=== PATIENT | male | born 1950 | race Caucasian/White ===

== ENCOUNTER 2021-08-02 10:34 | Emergency (ER) | payer OTHER ==
[~2021-08-02] VITALS: Ht 188 cm; Wt 104.3 kg
[~2021-08-02 10:34] MED LIST: ALBIPROI INH; ALBU90OI INH; ATEN50 PO; BUDE6HFA INH; BUPR150T2 PO; CHOL10002 PO; CLON1 PO; CLON2 PO; DOCU100 PO; DULO30 PO; FURO20 PO; FURO40 PO; HYDACE10B PO; ISOMON30 PO; LACT10SY PO; LISI20 PO; METF500 PO; NAPR220 PO; NICO14TP TOP; NITR.4SL SL; NITR.6SL SL; OMEP20ER PO; OXYC5 PO; POTCHL10ER PO; POTCHL20ER PO; PROM25 PO; TIOT18 IH; TIOT18 INH; TRAZ150T57 PO; Vitamin B-650 MG PO
[2021-08-02] MEDS ORDERED: HYDR1TAB94 PO (13:18)
== END 2021-08-02 15:00 | disposition home or self-care (01) ==
LOC: ER 10:34
DX: I77.9 Disorder of arteries and arterioles, unspecified (principal); E11.9 Type 2 diabetes mellitus without complications; I10 Essential (primary) hypertension; G47.30 Sleep apnea, unspecified; F17.210 Nicotine dependence, cigarettes, uncomplicated; Z91.030 Bee allergy status
CPT/HCPCS: 36415; 73502; 93926; 99285-25

== ENCOUNTER 2022-01-11 10:59 | Inpatient (IN) | payer OTHER ==
[~2022-01-11] VITALS: Ht 182.9 cm; Wt 104.3 kg
[~2022-01-11 10:59] MED LIST changes: +HYDR1TAB94 PO
[2022-01-11] MEDS ORDERED: ASCO500 PO (11:11)
[2022-01-11] MEDS ORDERED: Vitamin D1000 UNI1 PO (11:12)
[2022-01-11 11:38] LABS: BASOPHILS ABSOLUTE AUTO 0.05 K/mm3 (0.00-0.23); BASOPHILS PERCENT AUTO 1 % (0-2); EOSINOPHILS PERCENT AUTO 2 % (0-6); Hematocrit 48.8 % (37.0-53.0); Hemoglobin 15.8 g/dL (13.5-17.5); IMMATURE GRAN ABSOLUTE AUTO 0.01 K/mm3 (0.00-0.10); IMMATURE GRAN PERCENT AUTO 0 % (0-1); LYMPHOCYTES ABSOLUTE AUTO 1.07 K/mm3 (0.84-5.20); LYMPHOCYTES PERCENT AUTO 20 % (21-46); MONOCYTES ABSOLUTE AUTO 0.43 K/mm3 (0.16-1.47); MONOCYTES PERCENT AUTO 8 % (4-13); Mean Corpuscular HGB 30.1 pg (26.0-34.0); Mean Corpuscular HGB Conc 32.4 g/dL (31.5-36.5); Mean Corpuscular Volume 93 fL (80-100); Mean Platelet Volume 10.9 fL (9.1-12.4); NEUTROPHILS PERCENT AUTO 68 % (41-73); Platelet Count 105 K/mm3 (150-400); RDW Coefficient Variation 15.9 % (11.7-14.2); Red Blood Cell Count 5.25 M/mm3 (4.30-5.90); White Blood Cell Count 5.26 K/mm3 (4.00-11.30)
[2022-01-11 11:48] LABS: Alanine Aminotransfer (ALT/SGP 22 U/L (12-78); Albumin, Blood 3.4 g/dL (3.4-5.0); Albumin/Globulin Ratio 0.9 (0.8-1.8); Alk Phos 74 U/L (50-136); Anion Gap 4 mmol/L (6-16); Aspartate Aminotrans (AST/SGOT 27 U/L (12-37); Bilirubin, Total 0.4 mg/dL (0.1-1.0); Blood Urea Nitrogen 14 mg/dL (8-24); Bun/Creatinine Ratio 18.3 (12.0-20.0); CO2, Blood 36 mmol/L (21-32); Calcium, Blood 8.5 mg/dL (8.5-10.1); Chloride, Blood 96 mmol/L (98-108); Creatinine, Blood 0.77 mg/dL (0.60-1.20); Globulin, Blood 3.9 g/dL (2.2-4.0); Glomerular Filtration Rate >60 (60-); Glucose, Blood 143 mg/dL (70-99); Potassium, Blood 4.1 mmol/L (3.5-5.5); Sodium, Blood 136 mmol/L (136-145); Total Protein, Blood 7.3 g/dL (6.4-8.2)
[2022-01-11 14:07] LABS: Base Excess Venous 13.7 mmol/L; Bicarbonate Venous 31.8 mmol/L (24.0-30.0); PCO2 Venous 81.7 mmHg (38-42); PO2 Venous 31.4 mmHg (38-42)
[2022-01-11 14:58] LABS: Influenza A, PCR NEGATIVE (NEGATIVE); Influenza B, PCR NEGATIVE (NEGATIVE); Resp Syncytial Virus, PCR NEGATIVE (NEGATIVE); SARS-Cov-2 (COVID-19) PCR, MMC NEGATIVE (NEGATIVE)
[2022-01-11 19:59] LABS: U Amphetamine Screen Not Detected; U Barbituate Screen Not Detected; U Benzodiazapine Screen Not Detected; U Buprenorphine Screen Not Detected; U Cannabinoids Screen Not Detected; U Cocaine Screen Not Detected; U Methadone Screen Not Detected; U Methamphetamine Screen Not Detected; U Opiates Screen Not Detected; U Oxycodone Screen Not Detected; U Phencyclidine Screen Not Detected; U Propoxyphene Screen Not Detected
--- NOTE | 2022-01-12 04:25 | NUR ---
SHIFT SUMMARY: A/OX4- PATIENT ABLE TO WALK WITH FRONT WHEEL WALKER STANDBY ASSIST. NO COMPLAINTS OF PAIN THROUGHOUT THE NIGHT. PATIENTS PLACED ON 4L O2 AT THE BEGINNING OF SHIFT, WEANED DOWN TO 3 L- PT DECLINED TO CONTINUE TO WEAR OXYGEN DURING SLEEP AND SELF REMOVED NASAL CANNULA. MOTORIZED WHEEL CHAIR IN ROOM AT BEDSIDE. PATIENT WALKED TO AND FROM BATHROOM WITH NO SIGNIFICANT RESPIRATORY DISTRESS PREVIOUSLY OBSERVED. BED ALARM ACTIVATED, BED IN LOW POSITION, CALL GONZALES AND BELONGINGS IN REACH.
[2022-01-12 04:59] LABS: Hematocrit 51.3 % (37.0-53.0); Hemoglobin 16.3 g/dL (13.5-17.5); Mean Corpuscular HGB 29.9 pg (26.0-34.0); Mean Corpuscular HGB Conc 31.8 g/dL (31.5-36.5); Mean Corpuscular Volume 94 fL (80-100); Mean Platelet Volume 10.7 fL (9.1-12.4); Platelet Count 102 K/mm3 (150-400); RDW Standard Deviation 55.7 fL (35.1-46.3); Red Blood Cell Count 5.46 M/mm3 (4.30-5.90); White Blood Cell Count 5.78 K/mm3 (4.00-11.30)
[2022-01-12 05:28] LABS: Albumin, Blood 3.7 g/dL (3.4-5.0); Anion Gap 7 mmol/L (6-16); Blood Urea Nitrogen 22 mg/dL (8-24); Bun/Creatinine Ratio 28.6 (12.0-20.0); CO2, Blood 33 mmol/L (21-32); Calcium, Blood 8.8 mg/dL (8.5-10.1); Chloride, Blood 96 mmol/L (98-108); Creatinine, Blood 0.77 mg/dL (0.60-1.20); Glomerular Filtration Rate >60 (60-); Glucose, Blood 242 mg/dL (70-99); Phosphorus, Blood 4.5 mg/dL (2.5-4.9); Potassium, Blood 4.3 mmol/L (3.5-5.5); Sodium, Blood 136 mmol/L (136-145); Thyroid Stimulating Hormone 0.442 uIU/mL (0.360-4.800)
--- NOTE | 2022-01-12 09:54 | NUR ---
PATIENT FOUND WITH NC OFF. O2 SAT READING 88% ON RA. REPLACED NC ON PATIENT O2 SAT READING 94% ON 1L. RE-EDUCATED PATIENT OF IMPORTANCE OF LEAVING NC ON.
--- NOTE | 2022-01-12 17:27 | NUR ---
SHIFT SUMMARY PATIENT A&OX4. STARTED SHIFT ON O2 3L NC, WEANED DOWN TO 1L. FOUND PATIENT WITH NC OFF MULTIPLE TIMES T/O SHIFT AND SATS HIGH 80S ON ROOM AIR. PATIENT ABLE TO STAND USING WALKER AND USE URINAL. PATIENT STATES HE USES WALKER TO GET AROUND HIS APARTMENT AND HIS ELECTRIC WHEEL CHAIR FOR FURTHER DISTANCES. LLE CELLULITIS, RED AND SWOLLEN TO BELOW THE KNEE. STATES LEFT FOOT NUMBNESS. DENIES PAIN, N/V. ELEVATED BP, MEDICATED PER NOV. WILL CONTINUE TO MONITOR.
--- NOTE | 2022-01-13 04:07 | NUR ---
SHIFT SUMMARY: A/OX4, STANDBY ASSIST WITH FRONT WHEEL WALKER. PATIENT ABLE TO STAND AT BEDSIDE AND USE URINAL INDEPENDENTLY WITH STEADY STRENGTH, CALLS STAFF FOR STANDBY ASSISTANCE WALKING. CONTINUES TO CALL APPROPRIATELY. CIWAS HAVE REMAINED NEGATIVE THROUGHOUT THE NIGHT. PATIENT NOT GETTING A LOT OF REST, OFTEN SEEN SITTING ON SIDE OF BED REPORTS THIS POSITION HELPS BREATHING. RESPIRATORY THERAPIST CONTACTED FOR BREATHING TREATMENTS. BED IN LOW POSITION, CALL GONZALES IN REACH.
--- NOTE | 2022-01-13 18:31 | NUR ---
SHIFT SUMMARY PATIENT A&O X4. SBA WITH WALKER IN ROOM. ON 1L NC. OCCASIONALLY NEEDS REMINDED TO KEEP NC ON. LLE RED AND SWOLLEN. REPORTS THAT IT IS LESS PAINFUL THAN USUAL. NO PAIN MEDS GIVEN. BLOOD PRESSURE ELEVATED, ALL OTHER VS STABLE. WILL CONTINUE TO MONITOR.
--- NOTE | 2022-01-14 04:45 | NUR ---
SHIFT SUMMARY PT A/O X 4, MED PER NOV X 1 FOR C/O PAIN TO LLE, PT REPORTED GOOD PAIN RELIEF AFTER. FLACO PO WELL, VOIDING WITHOUT DIFFICULTY, UP WITH SBA/WALKER. VSS, LUNGS WITH WHEEZES NOTED, DIMINISHED LUNG SOUNDS, FLACO 1L O2 VIA N/C, CONGESTED COUGH NOTED, NO DISTRESS. ANTICIPATE D/C WHEN MEDICALLY STABLE.
--- NOTE | 2022-01-14 17:49 | NUR ---
SHIFT SUMMARY SITTING ON SIDE OF BED MOST OF DAY LAYING DOWN OCC. LLE WITH SWELLING AND REDNESS NOTED. URINATING WELL. APPEARS SOB WHENEVER IN THE ROOM. DENIES IT WORSENING WITH ACTIVITY. DID AUDIBLE HEAR FAINT WHEEZING FROM DOOR THIS AFTERNOON AND NEB REQUESTED. DENIES PAIN. LIVES AT [facility]. STANDS AT SIDE OF BED INDEPENDENTLY TO USE URINAL.
--- NOTE | 2022-01-15 06:13 | NUR ---
SHIFT SUMMARY PT A/O X 4, LUNGS COARSE WITH CONGESTED COUGH NOTED, PT FLACO ROOM AIR, NO DISTRESS NOTED. PT UP INDEPENDENTLY IN ROOM, VOIDING WITHOUT DIFFICULTY. LLE SWOLLEN, LARA, VSS, ANTICIPATE D/C WHEN MEDICALLY STABLE.
[2022-01-15] MEDS ORDERED: GLIP2.5ER PO (11:44)
[2022-01-15] MEDS ORDERED: ASPI81CH PO (11:44)
[2022-01-15] MEDS ORDERED: IPRAT-ALBUT 0.5-3 ML INH (11:46)
[2022-01-15] MEDS ORDERED: Hair, Skin & N1 EACH PO (11:47)
[2022-01-15] MEDS ORDERED: Prinivil10 MG PO (11:47)
[2022-01-15] MEDS ORDERED: ALBU90OI INH (11:48)
[2022-01-15] MEDS ORDERED: FLUTICASONE-SA1 EAC2 INH (11:49)
[2022-01-15] MEDS ORDERED: OMEP20ER PO (11:50)
[2022-01-15] MEDS ORDERED: Prednisone10 MG PO (11:53)
[2022-01-15 12:46] LABS: Influenza A, PCR NEGATIVE (NEGATIVE); Influenza B, PCR NEGATIVE (NEGATIVE); Resp Syncytial Virus, PCR NEGATIVE (NEGATIVE); SARS-Cov-2 (COVID-19) PCR, MMC NEGATIVE (NEGATIVE)
== END 2022-01-15 15:20 | disposition home or self-care (01) | DRG 189 ==
LOC: ER 10:59 → MEDS 19:43
PROVIDERS: Emergency Medicine; Internal Medicine; ADMIT Internal Medicine
DX: J96.21 Acute and chronic respiratory failure with hypoxia (principal); J44.1 Chronic obstructive pulmonary disease with (acute) exacerbation; I50.32 Chronic diastolic (congestive) heart failure; Z20.822 Contact with and (suspected) exposure to COVID-19; R22.42 Localized swelling, mass and lump, left lower limb; I11.0 Hypertensive heart disease with heart failure; J96.22 Acute and chronic respiratory failure with hypercapnia; D69.6 Thrombocytopenia, unspecified; E11.51 Type 2 diabetes mellitus with diabetic peripheral angiopathy without gangrene; G47.30 Sleep apnea, unspecified; G47.00 Insomnia, unspecified; E55.9 Vitamin D deficiency, unspecified; F10.10 Alcohol abuse, uncomplicated; F19.10 Other psychoactive substance abuse, uncomplicated; M51.36 Other intervertebral disc degeneration, lumbar region; Z71.6 Tobacco abuse counseling; F17.210 Nicotine dependence, cigarettes, uncomplicated; Z91.038 Other insect allergy status; Z79.899 Other long term (current) drug therapy
CPT/HCPCS: 0241U; 36415; 71045; 72148; 74176; 80053; 80069; 82803; 82947; 83036; 83880; 84443; 84484; 85025; 85027; 93005; 93010; 93306; 93926; 93971; 94640; 94664; 94760; 96374; 99285-25; A9270; J1650; J1815; J2930; J7512

== ENCOUNTER 2023-02-27 16:07 | Inpatient (IN) | payer OTHER ==
[~2023-02-27] VITALS: Ht 182.9 cm; Wt 108.5 kg
[~2023-02-27 16:07] MED LIST changes: +ASCO500 PO; +ASPI81CH PO; +FLUTICASONE-SA1 EAC2 INH; +GLIP2.5ER PO; +Hair, Skin & N1 EACH PO; +IPRAT-ALBUT 0.5-3 ML INH; +Prednisone10 MG PO; +Prinivil10 MG PO; +Vitamin D1000 UNI1 PO
[2023-02-27 17:04] LABS: BASOPHILS ABSOLUTE AUTO 0.03 K/mm3 (0.00-0.23); BASOPHILS PERCENT AUTO 0 % (0-2); EOSINOPHILS ABSOLUTE AUTO 0.13 K/mm3 (0.00-0.68); EOSINOPHILS PERCENT AUTO 2 % (0-6); Hematocrit 45.7 % (37.0-53.0); Hemoglobin 15.3 g/dL (13.5-17.5); IMMATURE GRAN ABSOLUTE AUTO 0.02 K/mm3 (0.00-0.10); IMMATURE GRAN PERCENT AUTO 0 % (0-1); LYMPHOCYTES ABSOLUTE AUTO 0.98 K/mm3 (0.84-5.20); LYMPHOCYTES PERCENT AUTO 13 % (21-46); MONOCYTES ABSOLUTE AUTO 0.43 K/mm3 (0.16-1.47); MONOCYTES PERCENT AUTO 6 % (4-13); Mean Corpuscular HGB 30.1 pg (26.0-34.0); Mean Corpuscular HGB Conc 33.5 g/dL (31.5-36.5); Mean Corpuscular Volume 90 fL (80-100); Mean Platelet Volume 9.3 fL (9.1-12.4); NEUTROPHILS ABSOLUTE AUTO 5.99 K/mm3 (1.96-9.15); NEUTROPHILS PERCENT AUTO 79 % (41-73); Platelet Count 153 K/mm3 (150-400); RDW Coefficient Variation 18.3 % (11.7-14.2); RDW Standard Deviation 56.2 fL (35.1-46.3); Red Blood Cell Count 5.09 M/mm3 (4.30-5.90); White Blood Cell Count 7.58 K/mm3 (4.00-11.30)
[2023-02-27 17:15] LABS: Albumin, Blood 2.6 g/dL (3.4-5.0); Albumin/Globulin Ratio 0.6 (0.8-1.8); Bilirubin, Total 0.7 mg/dL (0.1-1.0); Bun/Creatinine Ratio 11.4 (12.0-20.0); Calcium, Blood 8.1 mg/dL (8.5-10.1); Creatinine, Blood 0.53 mg/dL (0.60-1.20); Globulin, Blood 4.4 g/dL (2.2-4.0); Potassium, Blood 4.6 mmol/L (3.5-5.5)
[2023-02-28 01:46] VITALS: BP 126/71
--- NOTE | 2023-02-28 03:04 | NUR ---
PATIENT IS A NEW ADMIT FROM THE ED. AXOX 4 AND WHEELCHAIR BOUND ARRIVED VIA GURNY AND FOUR PERSON TRANSFER TO BED. IV VANCO INFUSING FROM THE ED. ON 2L O2 NC STATING 89-90% AND ROOM AIR BASELINE. REPORTS HOMELESS. RT NOW REPORTS PATIENT STATING 98% ON 2L AT THIS TIME. TELEMETRY PLACED AND TECH REPORTS ST [address]. DR STALIN PHELAN PODIATRY ANSWERING SERVICE CALLED AND REPORTS TO HAVE DAY RN CALL DAY PHONE NUMBER PROVIDED. ED RN REPORTS DR PHELAN ALSO CONSULTED IN ED TO SEE PATIENT IN OFFICE TOMORROW. PATIENT DENIES CHEST PAIN, SOB, AND N/V. AFEBRILE. CONSENT TO PHOTOGRAPH SIGNED AND PICTURES TAKEN OF LEFT HEEL ULCER AND TOES. PHOTO'S IN CHART. ED RN REPORTS POSSIBLE BED BUGS AND CONTACT STICKY MAT PLACED AT DOORWAY WITH CONTACT PRECAUTIONS. PATIENT WHEELCHAIR PLACED IN ROOM. REPORTS WANT TO WATCH TV AFTER ASSESSMENT. ORIENTED TO ROOM AND CALL LIGHT SYSTEM. WCTM.
[2023-02-28 05:13] LABS: BASOPHILS ABSOLUTE AUTO 0.02 K/mm3 (0.00-0.23); BASOPHILS PERCENT AUTO 0 % (0-2); EOSINOPHILS ABSOLUTE AUTO 0.06 K/mm3 (0.00-0.68); EOSINOPHILS PERCENT AUTO 1 % (0-6); Hemoglobin 13.4 g/dL (13.5-17.5); IMMATURE GRAN ABSOLUTE AUTO 0.02 K/mm3 (0.00-0.10); IMMATURE GRAN PERCENT AUTO 0 % (0-1); LYMPHOCYTES ABSOLUTE AUTO 0.65 K/mm3 (0.84-5.20); LYMPHOCYTES PERCENT AUTO 11 % (21-46); MONOCYTES ABSOLUTE AUTO 0.35 K/mm3 (0.16-1.47); MONOCYTES PERCENT AUTO 6 % (4-13); Mean Corpuscular HGB 29.8 pg (26.0-34.0); Mean Corpuscular HGB Conc 32.7 g/dL (31.5-36.5); Mean Corpuscular Volume 91 fL (80-100); Mean Platelet Volume 9.4 fL (9.1-12.4); NEUTROPHILS ABSOLUTE AUTO 4.91 K/mm3 (1.96-9.15); NEUTROPHILS PERCENT AUTO 82 % (41-73); Platelet Count 118 K/mm3 (150-400); RDW Coefficient Variation 17.7 % (11.7-14.2); RDW Standard Deviation 57.1 fL (35.1-46.3); Red Blood Cell Count 4.49 M/mm3 (4.30-5.90); White Blood Cell Count 6.01 K/mm3 (4.00-11.30)
--- NOTE | 2023-02-28 05:30 | NUR ---
COVID-19 SWAB TAKEN AND SENT TO LAB.
[2023-02-28 05:37] LABS: Albumin, Blood 2.4 g/dL (3.4-5.0); Albumin/Globulin Ratio 0.7 (0.8-1.8); Bilirubin, Total 0.5 mg/dL (0.1-1.0); Bun/Creatinine Ratio 17.9 (12.0-20.0); Calcium, Blood 7.9 mg/dL (8.5-10.1); Creatinine, Blood 0.67 mg/dL (0.60-1.20); Globulin, Blood 3.6 g/dL (2.2-4.0); Potassium, Blood 3.5 mmol/L (3.5-5.5)
[2023-02-28 06:15] LABS: Influenza A, PCR NEGATIVE (NEGATIVE); Influenza B, PCR NEGATIVE (NEGATIVE); Resp Syncytial Virus, PCR NEGATIVE (NEGATIVE); SARS-Cov-2 (COVID-19) PCR, MMC NEGATIVE (NEGATIVE)
[2023-02-28 07:06] VITALS: BP 142/88
[2023-02-28 15:20] VITALS: BP 136/93
--- NOTE | 2023-02-28 19:33 | NUR ---
SHIFT SUMMARY PATIENT ADMITED WITH ULCERATIVE LESION ON L HEAL WITH OSTEOMYLITIS. PATIENT RECENTLY EVECTED FROM [facility]. PATIENT ATTEMTED TO STAY [facility] BUT HAD ISSUES WITH OTHER MEMBERS. PATIENT CURRENTLY HOMELESS. PATIENT UNKEPT, HAIR MATTED. HAIR TRIMMED TO REMOVE MATTED HAIR. PATIENT RESISTIVE WITH PERSONAL CARE AT TIMES. PODIATRY CONSULTED AND REQUESTIING ORTHO TO CONSULT FOR POSSIBLE AMPUTATION. NO ORHTO AVAILABLE UNTIL THE . DR MENDOZA AND DR. PHELAN NOTIFIED OF NO ORTHO. WOUND CARE PROVIDED. WOUND CLEANSED WITH WOUND CLEANSER, IODOFOAM GAUZE LOOSELY PACKED IN WOUND AND COVERED WITH MEPILEX DRESSING. PATIENT STATES THAT HE HAS NOT HAD ANY WOUND CARE OUTSIDE OF HOSPITAL SINCE HE HAS HAD THIS WOUND. PATIENT MEDICATED WITH INSULIN RELATED TO BLOOD SUGARS. PATIENT STATES THAT HE DOES NOT TAKE ANYTHING FOR DIABETES. PATIENT CURRENTLY ON IV STEROIDS FOR RESPIRATORY DISTRESS. PATIENT NEW TO OXYGEN. SPUTUM SAMPLE NOT YET COLLECTED, CUP AT BEDSIDE.
[2023-02-28 19:49] VITALS: BP 124/92
[2023-03-01 02:46] VITALS: BP 132/99
[2023-03-01 04:56] LABS: Base Excess Venous 10.9 mmol/L; Bicarbonate Venous 32.5 mmol/L (24.0-30.0); PCO2 Venous 58.6 mmHg (38-42); pH Blood Venous 7.39 (7.34-7.37)
[2023-03-01 05:01] LABS: Hematocrit 41.5 % (37.0-53.0); Hemoglobin 13.4 g/dL (13.5-17.5); Mean Corpuscular HGB 29.6 pg (26.0-34.0); Mean Corpuscular HGB Conc 32.3 g/dL (31.5-36.5); Mean Corpuscular Volume 92 fL (80-100); Mean Platelet Volume 9.6 fL (9.1-12.4); Platelet Count 112 K/mm3 (150-400); RDW Coefficient Variation 17.6 % (11.7-14.2); RDW Standard Deviation 57.3 fL (35.1-46.3); Red Blood Cell Count 4.52 M/mm3 (4.30-5.90); White Blood Cell Count 7.18 K/mm3 (4.00-11.30)
--- NOTE | 2023-03-01 05:19 | NUR ---
SHIFT SUMMARY 72 YR M ADMITTED ON 02/28/23 FOR ULCER OF LEFT HEEL/OSTEOMYELITIS. FULL CODE. NO ACUTE CHANGES THIS SHIFT. PT HAS BEEN PLEASANT AND MOSTLY COOPERATIVE THIS SHIFT BUT IS STILL REFUSING TO ALLOW STAFF TO CHANGE HIS BEDDING. HE HAS HAD NO C/O PAIN OR DISCOMFORT THIS SHIFT. HE USES THE URINAL INDEPENDANTLY AND CALLS APPROPRIATELY FOR ASSISTANCE.
[2023-03-01 05:35] LABS: Albumin, Blood 2.5 g/dL (3.4-5.0); Anion Gap 3 mmol/L (6-16); Blood Urea Nitrogen 20 mg/dL (8-24); Bun/Creatinine Ratio 29.1 (12.0-20.0); CO2, Blood 34 mmol/L (21-32); Chloride, Blood 99 mmol/L (98-108); Creatinine, Blood 0.69 mg/dL (0.60-1.20); Glomerular Filtration Rate 98 (60-); Glucose, Blood 311 mg/dL (70-99); Magnesium, Blood 1.8 mg/dL (1.6-2.4); Phosphorus, Blood 3.4 mg/dL (2.5-4.9); Potassium, Blood 4.1 mmol/L (3.5-5.5); Sodium, Blood 136 mmol/L (136-145)
[2023-03-01 08:12] VITALS: BP 157/92
[2023-03-01 13:33] VITALS: BP 136/80
--- NOTE | 2023-03-01 13:40 | NUR ---
MD CALL BLAST FURNACE BLOWER CALLED WITH REPORT OF 22 BEATS OF [place]. PT DENIES ANY NEW SYMPTOMS. VITAL SIGNS DONE. DR MENDOZA CALLED AND NOTIFIED. IS ENTERING ORDERS.
[2023-03-01 16:02] VITALS: BP 130/78
--- NOTE | 2023-03-01 17:05 | NUR ---
MD CALL BLOOD GLUCOSE 394. DR MENDOZA CALLED AND INFORMED. NO NEW ORDERS, SLIDING SCALE COVERAGE ORDERED. PT EATING CANDY AND HAS BEEN EDUCATED THAT HE SHOULD NOT BE EATING IT ON A DIABETIC DIET, BUT HE CHOSES TO EAT IT.
--- NOTE | 2023-03-01 17:39 | NUR ---
SHIFT SUMMARY MR VERDE SMOKED TOBACCO IN HIS ROOM THIS MORNING. HE WAS REMINDED THAT THIS IS NOT ALLOWED AT THE [facility], HE GAVE HIS CIGARETTES TO BE KEPT SAFE IN HIS MEDICATION DRAWER UNTIL DISCHARGE. HE IS EATING MINI MILKY WAY BARS DESPITE HIGH BLOOD GLUCOSE AND EDUCATION ON THE EFFECTS OF HIGH BLOOD GLUCOSE/DIABETES. HE SAID HE UNDERSTANDS ALL ABOUT HIS DIABETES, THAT [place]ES ON THE [place] AND DOES NOT WANT TO TAKE MEDICATIONS WHEN HE IS NOT IN HOSPITAL. HE HAS BEEN PLEASANT AND FRIENDLY IN HIS OBJECTIONS/OPINIONS. HE IS ON TELEMETRY ST LOW 100S. [address] BEAT RUN OF [employer] CALLED FROM [employer] THIS AFTERNOON DURING WHICH TIME PT DENIED ANY NEW SYMPTOMS. DENIES CP/CHEST PRESSURE. HE STOOD WITH 2 STAFF TO TRANSFER TO THE CHAIR THIS AM. HE HAD BEEN INCONTINENT OF SOFT STOOL AND WAS UNAWARE OF IT. HE HAS NOT PRODUCED A SPUTUM SAMPLE. ON 2L O2 NC. LEFT FOOT DRESSING C,D,I. LEFT LEG SWOLLEN, WARM TO TOUCH AND RED. RIGHT LEG LESS EDEMATUS AND LESS RED THAN LEFT, SMALL OPEN WOUND RIGHT LOWER LEG WITH MEPILEX PLACED OVER IT. BED LOW, CALL LIGHT IN REACH.
[2023-03-01 19:47] VITALS: BP 132/76
--- NOTE | 2023-03-02 04:04 | NUR ---
SHIFT SUMMARY A/O PT NON COMPLIANT WITH DIET INTAKE, ON ISOLATION WITH POSSIBLE MRSA IN THE WOUND. LEFT FOOT INFLAMMATION CAUSING PAIN BUT PT REFUSED MEDICATION, SPOKE ABOUT HIS WILLINGNESS TO UNDER GO DISCUSSED AMPUTAION. HELPED PT TRANSFER IN AND OUT OF BED, HAS BEEN CALLING APPROPRIATLY.
[2023-03-02 04:51] VITALS: BP 163/104
[2023-03-02 06:10] LABS: Bun/Creatinine Ratio 31.6 (12.0-20.0); Calcium, Blood 8.4 mg/dL (8.5-10.1); Creatinine, Blood 0.66 mg/dL (0.60-1.20); Magnesium, Blood 1.9 mg/dL (1.6-2.4); Potassium, Blood 3.8 mmol/L (3.5-5.5)
[2023-03-02 07:35] VITALS: BP 140/96
--- NOTE | 2023-03-02 14:31 | NUR ---
RN NOTE MR VERDE CONTINUES TO BE SHORT OF BREATH AT WHAT HE DESCRIBES HIS BASELINE. RECEIVING TREATMENTS FROM RT MAKENZIE. ON 2L N/C O2. DENIES CHEST PAIN OR PRESSURE, ONLY C/O LOW LEVEL PAIN LEFT FOOT. LEFT FOOT POST-OP MEPILEX DRESSING WAS CHANGED THIS MORNING EXUDATE HAD SOAKED THROUGH THE DRESSING. MR VERDE WAS INCONTINENT OF A LARGE SOFT STOOL THIS MORNING AND AFTER SOME PERSUASION ALLOWED STAFF TO CLEAN HIM AND CHANGE THE BEDSHEETS. NO CALLS FOR ADVERSE EVENTS FROM [email or web address] TODAY. BLOOD SUGAR IMPROVED TODAY PT IS OUT OF MILKY WAY BARS. MR VERDE HAS MADE SEVERAL COMMENTS ABOUT NOT BEING CONCERNED WITH IMPROVING HIS HEALTH HE IS LIVING ON THE STREET. HACKING COUGH BUT HE HAS NOT PRODUCED SPUTUM CULTURE. BED LOW, CALL LIGHT IN REACH.
--- NOTE | 2023-03-02 16:20 | NUR ---
PT LEFT AMA MR VERDE DECIDED TO LEAVE AGAINST MEDICAL ADVICE. CHARGE NURSE AND SUBSYSTEMS ENGINEER INVOLVED WHEN MR GARCIA WAS SMOKING IN HIS ROOM WEARING OXYGEN. HE WAS ALSO HAD ALCOHOLIC BEVERAGE IN HIS ROOM. DR MENDOZA WAS NOTIFIED OF PT DECISION TO LEAVE AMA. CHARGE NURSE POLITELY REQUESTED OF PT TO LET HIS BELONGINGS BE PUT IN A LOCKED SECURE PLACE UNDER SECURITY BUT HE DECLINED. THE RISKS OF LEAVING AMA WERE EXPLAINED IN DETAIL TO MR VERDE ALONG WITH OPTIONS FOR STAYING AND COMPLETING TREATMENT. IT WAS REINFORCED TO MR VERDE BY MYSELF AND BREED TO WEAN PRODUCTION TECHNICIAN THAT HE IS WELCOME TO RETURN TO THE HOSPITAL FOR FURTHER MEDICAL CARE. HE LEFT MEDICAL UNIT AT [id number] VIA HIS OWN ELECTRIC WHEELCHAIR.
== END 2023-03-02 16:16 | disposition left against medical advice (07) | DRG 637 ==
LOC: ER 16:07 → MEDS 02-28 01:18
PROVIDERS: Internal Medicine; Physician Assistant; ADMIT Internal Medicine
DX: E11.69 Type 2 diabetes mellitus with other specified complication (principal); J18.9 Pneumonia, unspecified organism; J96.22 Acute and chronic respiratory failure with hypercapnia; J96.21 Acute and chronic respiratory failure with hypoxia; M86.8X7 Other osteomyelitis, ankle and foot; J44.0 Chronic obstructive pulmonary disease with (acute) lower respiratory infection; J44.1 Chronic obstructive pulmonary disease with (acute) exacerbation; L97.429 Non-pressure chronic ulcer of left heel and midfoot with unspecified severity; Z53.29 Procedure and treatment not carried out because of patient's decision for other reasons; Z59.00 Homelessness unspecified; Z20.822 Contact with and (suspected) exposure to COVID-19; L03.116 Cellulitis of left lower limb; B95.62 Methicillin resistant Staphylococcus aureus infection as the cause of diseases classified elsewhere; B96.89 Other specified bacterial agents as the cause of diseases classified elsewhere; E11.51 Type 2 diabetes mellitus with diabetic peripheral angiopathy without gangrene; I10 Essential (primary) hypertension; M51.36 Other intervertebral disc degeneration, lumbar region; G47.30 Sleep apnea, unspecified; E66.9 Obesity, unspecified; G83.14 Monoplegia of lower limb affecting left nondominant side; F17.210 Nicotine dependence, cigarettes, uncomplicated; F10.11 Alcohol abuse, in remission; Z99.3 Dependence on wheelchair; Z91.030 Bee allergy status; Z79.82 Long term (current) use of aspirin; Z79.84 Long term (current) use of oral hypoglycemic drugs; Z68.31 Body mass index [BMI] 31.0-31.9, adult; Z79.51 Long term (current) use of inhaled steroids; Z79.811 Long term (current) use of aromatase inhibitors; Z86.19 Personal history of other infectious and parasitic diseases; Z86.73 Personal history of transient ischemic attack (TIA), and cerebral infarction without residual deficits; Z99.81 Dependence on supplemental oxygen; Z87.39 Personal history of other diseases of the musculoskeletal system and connective tissue; Z79.899 Other long term (current) drug therapy
CPT/HCPCS: 0241U; 36415; 71046; 73630; 80048; 80053; 80069; 82803; 82947; 83735; 83880; 84145; 84484; 85025; 85027; 87070; 87075; 87077; 87147; 87186; 87205; 93005; 93010; 94640; 94664; 94760; 96365; 96366; 96367; 99285-25; A9270; J0456; J0690; J0696; J1650; J1815; J2930; J3370; J7050; J7512